=== PATIENT | male | born 1940 | race Caucasian/White ===

== ENCOUNTER 2018-10-11 11:34 | Observation (INO) | payer MEDICARE, BC ==
--- NOTE | 2018-10-11 11:56 | ED ---
Neurological HPI - HPI Summary HPI Summary: This patient is a 78 year old M presenting [facility] accompanied by his with concern for possible CVA. For the last 3 days the patient has been experience waxing and waning dizziness that he describes as having 2-3 drinks. Along with this he had silver crystals in his peripheral vision when blinking 2 nights ago that has resolved, he also experienced altered vision perception on the left that he describes as my left arm being four foot long and when I go to grab something I am farther that I expect. He contacted his PCP this morning who suggested he come here. Yesterday the patent states he experienced the dizziness early along with chills and states he slept most of the day. Patient denies TIWARI and kidney history. - History of Current Complaint Chief Complaint: EDNeurologicalDeficit Stated Complaint: STOKE LIKE SYMPOTOMS Time Seen by Provider: 10/11/18 11:41 Hx Obtained From: Patient Onset/Duration: Started days ago - 3, Still Present Timing: Constant Onset Severity: Moderate Current Severity: Moderate Pain Intensity: 0 Pain Scale Used: 0-10 Numeric Character: Other: - intoxicated Syncope Context: Loss of Consciousness: No Associated Signs and Symptoms: Positive: Dizziness - Allergy/Home Medications Allergies/Adverse Reactions: Allergies Allergy/AdvReac Type Severity Reaction Status Date / Time No Known Allergies Allergy Verified 10/11/18 11:59 Home Medications: Home Medications Losartan TAB* [Cozaar TAB*] 50 mg PO DAILY 10/11/18 [History Confirmed 10/11/18] Metoprolol Tartrate TAB* [Lopressor TAB*] 25 mg PO BID 10/11/18 [History Confirmed 10/11/18] Rosuvastatin (NF) [Crestor (NF)] 10 mg PO DAILY 10/11/18 [History Confirmed ] PMH/Surg Hx/FS Hx/Imm Hx Cardiovascular History: Reports: Hx Angina, Hx Angioplasty - x2 stents jun 2013 , Hx Auto Implanted Cardiovert Defib - 09/22/13, Hx Coronary Artery Disease - 2 STENTS PLACED IN [place], Hx Hypercholesterolemia, Hx Hypertension, Hx Myocardial Infarction - W 2 STENTS, Hx Pacemaker/ICD, Other Cardiovascular Problems/Disorders Respiratory History: Reports: Hx Pneumonia - recent diagnosis GI History: Denies: Other GI Disorders History: Reports: Hx Kidney Stones Denies: Other Problems/Disorders Musculoskeletal History: Reports: Hx Arthritis - SOME JOINT PAIN, Hx Tendonitis - left shoulder Sensory History: Reports: Hx Contacts or Glasses Denies: Hx Hearing Aid Opthamlomology History: Reports: Hx Contacts or Glasses - Cancer History Cancer Type, Location and Year: Pre-cancerous skin lesions removed - Surgical History Surgery Procedure, Year, and Place: left parotidectomy. 06/2013- [facility]. OFFICE VISITS FOR REMOVAL OF MOLES Hx Anesthesia Reactions: Yes - N/V AFTER THE PAROTIDECTOMY Infectious Disease History: No Infectious Disease History: Denies: Traveled Outside the [place] in Last 30 Days - Family History Known Family History: Positive: Cardiac Disease - father [place] - Social History Alcohol Use: Daily Alcohol Amount: 8 beers/week Hx Substance Use: No Substance Use Type: Reports: None Hx Tobacco Use: No Smoking Status (MU): Never Smoked Tobacco Review of Systems Positive: Chills, Fatigue Positive: Other - see HPI Neurological: Other - dizziness Negative: Headache All Other Systems Reviewed And Are Negative: Yes Physical Exam - Summary Physical Exam Summary: Appearance: The patient is well-nourished in no acute distress and in no acute pain. Skin: The skin is warm and dry and skin color reflects adequate perfusion. HEENT: The head is normocephalic and atraumatic. The pupils are equal and reactive. The conjunctivae are clear and without drainage. Nares are patent and without drainage. Mouth reveals moist mucous membranes and the throat is without erythema and exudate. The external ears are intact. The ear canals are patent and without drainage. The tympanic membranes are intact. Neck: The neck is supple with full range of motion and non-tender. There is a carotid bruit ion the right. There is no neck vein distension. Respiratory: Chest is non-tender. Lungs are clear to auscultation and breath sounds are symmetrical and equal. Cardiovascular: Heart is irregularly irregular with a controlled rhythm. There is no murmur or rub auscultated. There is no peripheral edema and pulses are symmetrical and equal. Abdomen: The abdomen is soft and non-tender. There are normal bowel sounds heard in all four quadrants and there is no organomegaly palpated. Musculoskeletal: There is no back tenderness noted. Extremities are non-tender with full range of motion. There is good capillary refill. There is no peripheral edema or calf tenderness elicited. Neurological: Patient is alert and oriented to person, place and time. The patient has symmetrical motor strength in all four extremities. Cranial nerves are grossly intact. Deep tendon reflexes are symmetrical and equal in all four extremities. Normal gait Psychiatric: The patient has an appropriate affect and does not exhibit any anxiety or depression. Triage Information Reviewed: Yes Vital Signs On Initial Exam: Initial Vitals Temp Pulse Resp BP Pulse Ox 97.2 F 68 16 167/82 97 10/11/18 11:35 10/11/18 11:35 10/11/18 11:35 10/11/18 11:35 10/11/18 11:35 Vital Signs Reviewed: Yes - [place] Coma Scale Best Eye Response: 4 - Spontaneous Best Motor Response: 6 - Obeys Commands Best Verbal Response: 5 - Oriented Coma Scale Total: 15 Diagnostics - Vital Signs Vital Signs Temp Pulse Resp BP Pulse Ox 10/11/18 11:35 97.2 F 68 16 167/82 97 - Laboratory Result Diagrams: 10/11/18 12:07 10/11/18 12:07 Lab Statement: Any lab studies that have been ordered have been reviewed, and results considered in the medical decision making process. - CT CTA Head CT Interpretation Completed By: Radiologist Summary of CT Findings: 1. NOTED ACUTE INTRACRANIAL PATHOLOGY. 2. NO INTERNAL CAROTID ARTERY STENOSIS BY NASCET CRITERIA. 3. NO ANEURYSM, VASCULAR MALFORMATION, OCCLUSION, OR STENOSIS OF THE VISUALIZED. INTRACRANIAL CIRCULATION. .. 4. .0.8 CM LEFT THYROID NODULE. IN THE ABSENCE OF A HISTORY OF MALIGNANCY, THE BERMUDIAN. COLLEGE OF RADIOLOGY INCIDENTAL THYROID FINDINGS COMMITTEE RECOMMENDS NO FURTHER IMAGING. FOLLOW-UP. ED physician has reviewed this radiology report. - EKG 1157 Cardiac Rate: NL EKG Rhythm: Sinus Rhythm - at 51 BPM Summary of EKG Findings: Premature atrial complexes NIH Scale - NIH Scale Level of Consciousness: Alert/Keenly Responsive Ask Patient the Month and His/Her Age: Both Correct Ask Pt to Open/Close Eyes and Coremaker Apprentice/Release Non-Paretic Hand: Both Correctly Best Gaze (Only Horizontal Eye Movement): Normal Visual Field Testing: No Visual Loss Facial Paresis-Pt to Smile & Close Eyes or Grimace Symmetry: Normal/Symmetrical Motor Function - Right Arm: No Drift-Holds 10 Seconds Motor Function - Left Arm: No Drift-Holds 10 Seconds Motor Function - Right Leg: No Drift-Holds 10 Seconds Motor Function - Left Leg: No Drift-Holds 10 Seconds Limb Ataxia-Must be out of Proportion to Weakness Present: Absent Sensory (Use Pinprick to Test Arms/Legs/Trunk/Face): Normal Best Language (Describe Picture, Name Items): No Aphasia Dysarthria (Read Several Words): Normal Extinction and Inattention: No Abnormality Total Score: 0 Course/Dx - Course Course Of Treatment: Mr. Reyes presented with a several day history of intermittent concerns including a gait disturbance, and visual problems on the left. On my exam his NIH stroke scale was 0 however I thought I heard a bruit on the right carotid. This may have been a transmitted murmur but I could not hear a murmur on his cardiac exam. Labs and CT of the head and neck revealed no acute pathology and I consulted for neurology who came to the department and evaluated him. He recommended admission to the hospitalist service and they were contacted and are admitting him now. - Diagnoses Provider Diagnoses: CVA (cerebral vascular accident) - Physician Notifications Discussed Care Of Patient With: Gamaliel Ramires Time Discussed With Above Provider: 13:47 Instructed by Provider To: Other - He has agreed to see the patient in the ED. 1441 He has recommends admitting the patient for what is most likely a CVA. Discharge - Sign-Out/Discharge Documenting (check all that apply): Patient Departure - admitted - Discharge Plan Condition: Fair Disposition: ADMITTED TO [facility] Referrals: Cassie Melendrez MD [Primary Care Provider] - - Billing Disposition and Condition Condition: FAIR Disposition: Admitted to [facility] - Attestation Statements Document Initiated by Smith: Yes Documenting Scribe: Kane Guerrier Provider For Whom Smith is Documenting (Include Credential): Asad Scanlon MD Scribe Attestation: IKane , scribed for Asad Scanlon MD on 10/11/18 at 1534. Scribe Documentation Reviewed: Yes Provider Attestation: The documentation as recorded by the Kane martinez accurately reflects the service I personally performed and the decisions made by me, Asad Scanlon MD Consult Consult: 0191: I discussed patient care with Dr. Avelar and she has accepted the patient for admission.
[2018-10-11 12:13] LABS: ABS Basophils 0.1 10^3/ul (0-0.2); ABS Eosinophils 0.1 10^3/ul (0-0.6); ABS Lymphocytes 1.8 10^3/ul (1.0-4.8); ABS Monocytes 0.5 10^3/ul (0-0.8); ABS Neutrophils 4.2 10^3/ul (1.5-7.7); ABS Nucleated RBC 0 10^3/ul; Eosinophil % 1.8 % (0-6); Hematocrit 45 % (42-52); Hemoglobin 15.3 g/dl (14.0-18.0); Lymphocyte % 26.4 % (25-47); Mean Corpuscular HGB Conc 34 g/dl (31-36); Mean Corpuscular Hemoglobin 32 pg (27-31); Mean Corpuscular Volume 93 fL (80-94); Mean Platelet Volume 7.6 fL (7.4-10.4); Nucleated Red Blood Cells % 0.1; Platelet Count 164 10^3/ul (150-450); Red Blood Count 4.82 10^6/ul (4.00-5.40); Red Cell Distribution Width 14 % (10.5-15); White Blood Count 6.7 10^3/ul (3.5-10.8)
[2018-10-11 12:27] LABS: INR 0.94 (0.77-1.02)
[2018-10-11] MEDS ORDERED: Iohexol 350* (CONTRAST) 500 ML MDV IV ONE (12:50)
[2018-10-11 14:13] LABS: Urine Appearance Clear; Urine Blood Negative (Negative); Urine Color Colorless; Urine Ketones Negative (Negative); Urine Protein Negative (Negative); Urine Specific Gravity 1.024 (1.010-1.030); Urine Urobilinogen Negative (Negative)
--- NOTE | 2018-10-11 15:09 | CONSULT ---
Consult Consult: Please see dictated consult note for more detail. 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 Most of these symptoms were transient. He is currently asymptomatic. On examination, he has mild reduced sensation to temperature on the left face and arm. NIHSS 1. He is not a candidate for IV tPA or mechanical thrombectomy as he is outside the therapeutic window. Other differential diagnosis such as focal sensory seizure is highly unlikely. A/P: I suspect the patient had a mild right MCA vascular territory infarct involving the right parietal lobe vs TIA to the left MCA vascular distribution. There is no stroke or large vessel occlusion on CT/CTA head and neck. Repeating another CT head will not be useful since the symptoms occurred > 24 hours ago and if it was a large stroke, it should be seen on the current study. 1. High suspicion for right parietal MCA vascular territory embolic stroke - I do recommend obtaining records from the patient's extension service specialist in charge (Dr. Serrano). We need to make sure the patient has no history of atrial arrhythmia such as atrial fibrillation. - Please order a TTE with bubble study - Admit for observation to assess for recurrent stroke or TIA - Start Plavix 75 mg daily + aspirin 81 mg daily for 30 days. Discontinue aspirin 81 mg after 30 days. If he does have evidence of atrial fibrillation or atrial thrombus, then discontinue ALL anti-platelet agents and start anticoagulation therapy. Defer anti-coagulation therapy recommendation to cardiology. - Order lipid panel and B12 level - Neuro checks every 4 hours - BP within normal range since he is outside the 24 hours window - DVT prophylaxis with heparin 5,000 units subcutaneously every 8 hours - No need for PT/OT/MOTION PICTURE SCENE BUILDER services since the patient is nearly asymptomatic - Please do a bedside swallow evaluation. - He should see an bone char kiln operator as an outpatient to exclude any intraocular abnormalities. I will continue to follow. Discussed care with Dr. Scanlon. Dr. Scanlon agreed to contact the hospitalist provider for admission. I also discussed the care with the patient and Mrs. Reyes at bedside. I informed them my concern for a possible stroke. I informed him that he is at a high risk of developing recurrent symptoms or evolution of symptoms the first 7 days after a stroke.
[2018-10-11] MEDS ORDERED: Acetaminophen TAB* 325 MG PO PRN (15:36)
[2018-10-11] MEDS ORDERED: Ondansetron INJ* 2 MG/ML VIAL IV PRN (15:36)
[2018-10-11] MEDS: Clopidogrel TAB* 75 MG PO SCH (17:40)
--- NOTE | 2018-10-11 20:41 | HP ---
CC: Dr. Melendrez; Dr. Ramires; Dr. Serrano * HISTORY AND PHYSICAL: DATE OF ADMISSION: 10/11/18 PRIMARY CARE PROVIDER: Dr. Melendrez. CONSULTING NEUROLOGIST: Dr. Ramires. ATTENDING PROVIDER: Dr. Avelar * (DICTATED BY BILL ROY NP) CHIEF COMPLAINT: 1. Dizziness. 2. Visual changes. HISTORY OF PRESENT ILLNESS: Mr. Reyes is a 78-year-old male patient. He has a history of CAD, history of LA, hyperlipidemia, cardiomyopathy, last EF 45% to 50%, arthritis. He has a history of nephrolithiasis, hypertension and has a history of PACs. He presents today stating that on Thursday he noticed that he was having trouble with depth perception, particularly in his left arm and he was seeing white flashes out of his left eye. He was having difficulty with depth perception of his left side. He was noticing that he thought when he was looking out of his left lower quadrant that he could see his left hand, but in actuality it was not there. He denied any facial drooping. No weakness to one side. He did admit to feeling dizzy and lightheaded and having a headache yesterday. He denied having any fevers. He did admit to feeling warm, but no documented fever. He states the dizziness is gone. When he woke up this morning, he said he was seeing crystals and floaters out of his left lower quadrant of his left eye. He was concerned because his symptoms were not getting any better. He thought he should be evaluated. He came in to the ER. He denied any recent change in medications. He denied again having any focal weaknesses or any facial drooping or trouble finding words. He was evaluated in the ED. There was concern for possible CVA and we were asked to evaluate for admission. PAST MEDICAL HISTORY: Significant for: 1. CAD. He did have a stress test this year, which showed no reversible ischemia. 2. He had an LA. 3. Hyperlipidemia. 4. Cardiomyopathy, last EF was 45% to 50% on an echo done outpatient this year. 5. Arthritis. 6. Nephrolithiasis. 7. Hypertension. 8. He has a history of PACs. PAST SURGICAL HISTORY: He has had a cardiac catheterization. He had an ICD placement and he has had a parotidectomy. MEDICATIONS: His home meds include: 1. Metoprolol tartrate 25 mg p.o. b.i.d. 2. Crestor 10 mg daily. 3. Aspirin 81 mg daily. 4. Cozaar 50 mg daily. ALLERGIES TO MEDICATIONS: Include no known drug allergies. FAMILY HISTORY: He states his mother in her 90s of old age. Father had an LA at the age of 84. His brother also had an LA. SOCIAL HISTORY: He does not smoke. He does drink 2 to 3 mixed drinks a day. The surrogate decision maker is his . REVIEW OF SYSTEMS: There is no documented fever. He denied having any significant weight change. There is no double vision. He denies having any ear discharge. There is no rhinorrhea. There was no sore throat. No thyroid enlargement. He denied having any chest pain. There is no orthopnea. There is no nocturnal dyspnea. There was no abdominal pain. There was no nausea, no vomiting. No dysuria. There was no frequency. There was no seizure. There was no loss of consciousness. No pruritus and no skin ulcerations. Review of 14 systems completed, all others negative. PHYSICAL EXAMINATION GENERAL: At this time, Mr. Reyes is a 78-year-old male patient. He is sitting in the ED stretcher. He does not appear to be in any acute distress. He appears to be well nourished and well developed. VITAL SIGNS: Blood pressure 164/109, pulse 62, respirations 18, O2 sat 98%, temperature 97.2. HEENT: Head: Atraumatic and normocephalic. Eyes: EOMs are intact. Sclerae anicteric and not pale. Throat: Oral mucosa appears to be moist. No oropharyngeal erythema. NECK: Supple. LUNGS: Clear to auscultation. No wheezes, rales, or rhonchi. HEART: Sounds S1, S2. He had a regular rate and rhythm with occasional skipped beat. No murmurs, rubs, or gallops. ABDOMEN: Soft, flat, nontender. Bowel sounds were present. EXTREMITIES: Pulses were 2+ throughout. He is moving all 4 extremities with 5/ 5 strength. He had no peripheral edema. NEUROLOGICAL: He is awake. He is alert. He is oriented x3. His tongue is midline. His state superintendent of schools were equal. Vxfkiu-ta-migl intact bilaterally. Heel-to- almazan intact bilaterally. He had no pronator drift. No leg drift. Peripheral vision was intact. Cranial nerves II through XII were intact. He had no gross focal deficits on my exam. SKIN: Intact. DIAGNOSTIC STUDIES/LAB DATA: WBC of 6.7, RBC 4.82, hemoglobin 15.3, hematocrit 45, platelet count 154,000. INR 0.94. Sodium 137, potassium of 4.2 , chloride 107, bicarb 25, BUN 15, creatinine 1.07, glucose 115. Lactate 1.1. Calcium 9.3. Bili 2.0, AST 27, ALT 30, alk phos 57. Troponin 0.01. TSH of 4.53. Albumin 4.1. Urine was obtained; it was negative. He did have a head CTA obtained today, impression: No acute intracranial pathology, no internal carotid artery stenosis by NASCET criteria, no aneurysms , vascular malformation, occlusion, or stenosis of the visualized intracranial circulation. He has a 0.8 cm left thyroid nodule in the absence of a history of malignancy. No further imaging followup needed based on incidental finding. He did have an EKG obtained today, which when I reviewed it, he has sinus bradycardia with rate of 51. He does have PAC. He had no ST elevation. He did have some depression in leads 2, 3, and aVF. When he looked to his previous EKGs and this was from 2 years ago, that depression was present then and again he had PACs previously. Old medical records were reviewed. ASSESSMENT AND PLAN: Mr. Reyes is a 78-year-old male patient coming into the ED today with complaints of again visual disturbances. In addition to this, difficulty with proprioception in the left upper extremity. He will be admitted under observation status for: 1. Question cerebrovascular accident. Again, at this point, he is nonfocal on my exam. Dr. Ramires did notice that he does have some decreased temperature sensation in the left side compared to the right side, particularly the left face and left arm. There is concern for possible stroke. Plan would be to get an echo with bubble studies. I am going to interrogate the pacemaker to make sure he has no definite history of atrial fibrillation. The patient did state to me that he had a history of atypical atrial fibrillation and I am going to touch base with his printing manager to confirm this because if he does have atrial fibrillation, that would be an indication for a blood thinner. At this point though, there is no documented atrial fibrillation, so I am going to continue with Plavix and aspirin, statin therapy. We will check lipid panel, A1c, frequent neuro checks. Unfortunately, he cannot have an MRI because of the ICD, so we will continue to follow. 2. Coronary artery disease. Continue statin, aspirin, and beta-deepak therapy. 3. Hyperlipidemia. Continue statin therapy. 4. Cardiomyopathy. I have held his Cozaar for 24 hours to allow for some permissive hypertension in the setting of possible stroke. Most likely, I could restart this tomorrow. He does not appear to be in failure. We will follow. Last EF was 45% to 50%. 5. History of arthritis. P.r.n. Tylenol is available. 6. Kidney stones. Follow up with PCP. 7. History of hypertension. Allow for permissive hypertension. I will treat blood pressures greater than 200 or diastolics greater than 100. 8. DVT prophylaxis. He will be placed on heparin subcu. 9. Code status. He is a full code. 10. Fluids, electrolytes, and nutrition. He can have a heart healthy diet. TIME SPENT: On the admission was 60 minutes, greater than half the time spent face- to-face with the patient obtaining my history and physical; other half time spent going over the plan of care with the patient and implementing plan of care. I did discuss the plan of care with my attending, Dr. Avelar. BILL ROY, EVAN [id number]/[facility] #: [id number] JOVI
[2018-10-11] MEDS: Heparin VIAL(*) 5000 UNITS/ML VIAL (FIVE THOUSAND) SUBCUT SCH (21:10)
[2018-10-11] MEDS: Metoprolol Tartrate TAB* 25 MG PO SCH (21:10)
--- NOTE | 2018-10-11 21:16 | CONS ---
NEUROLOGY CONSULTATION NOTE: DATE OF CONSULT: 10/11/18 CONSULTING PROVIDER: Asad Scanlon MD REASON FOR CONSULT: Transient visual disturbance, dizziness, headache, and left - sided numbness. CHIEF COMPLAINT: "I've no symptoms now, but I did have a minor headache." HISTORY OF PRESENT ILLNESS: Mr. 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 The patient stated that he had a republican on Thursday. At approximately 9 p.m., the patient went out to throw the trash. He noticed sudden sparkle-like shiny object in the left peripheral vision. When he looks towards the left, he does not see anything. This occurred 2 more times. Lastly, it occurred suddenly when he noticed it was actually his left hand. He was unsure if he had any jewelry in the left hand. When he lifted his left arm he noticed and felt that it was detached away from his body and it was far away approximately 2 to 3 feet away. He did not know if actually it was his hand or not. He went to sleep that night and spent the night Thursday sleeping. He did consume 2-3 alcoholic beverages that Thursday, but this occurred 2 hours after his last drink. He does take aspirin 81 mg daily. On Thursday, he felt mild chills with associated mild headache. He had bifrontal headache, constant, 4/10 in severity, dull sensation with no radiating pain. He had no photophobia. He has no nausea. He rarely has headaches. He felt lightheaded throughout the day. He denied vertigo. He denied any current focal weakness or paresthesia. All these symptoms resolved this morning; however, after contacting his primary care doctor, who contacted Dr. Ananda James and who recommended further evaluation in the emergency room. PAST MEDICAL HISTORY: Cataracts; myocardial infarction, status post 2 stent placement; ICD implantation; excision of premelanoma skin lesions. MEDICATIONS: 1. Aspirin 81 mg daily. 2. Losartan 50 mg p.o. daily. 3. Rosuvastatin 10 mg p.o. daily. 4. Metoprolol 25 mg p.o. twice daily. ALLERGIES: No known drug allergies. FAMILY HISTORY: No family history of stroke or seizures. His father from a major heart attack. 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 He denied any tobacco use. He drinks a glass of beer or shots of bourbon daily/or every other day. REVIEW OF SYSTEMS: A 14-point review of systems was obtained and otherwise negative except for what was mentioned in the HPI. PHYSICAL EXAM: Vitals: Temperature 97.2, heart rate of 55, respiratory rate of 18, oxygen saturation of 95%, blood pressure 149/83. General: Well- nourished, well-developed man, in no acute distress. Head: Normocephalic, atraumatic. Eyes: Conjunctivae/corneas are clear. Neck is supple and symmetrical with no carotid bruits. Lungs are clear to auscultation bilaterally. Cardiovascular: He has got irregular rhythm with normal rate. Extremities: Normal range of motion with no cyanosis. Skin: No skin lesions or lacerations. Psych: Affect is broad and normal mood. Easy to establish rapport. Neurological Examination: Mental Status: Awake, alert, and oriented to person, place, time, and general circumstances. He has no dysphasia or dysarthria. Normal confrontation testing bilaterally. Pupils are mid range and reactive to light. Extraocular muscles are intact. No ptosis. He does have slight widening of the palpebral fissure on the right side. No facial droop. He is able to hear throughout the history process. Symmetrical palatal elevation. Normal strength against resistance. Sensation to light touch was intact on the left side of the face; however, temperature sensation was reduced on the left side of the face. Motor: Right/left, no abnormal movements. No pronator drift. 5/5 strength in the upper and lower extremities bilaterally. Reflexes: Right/left, brachioradialis 2/2, biceps 2/2, triceps 2/2, patella 2/2 , ankle 1/1, plantar flexor/flexor. Sensation is intact to light touch throughout except for decreased sensation to temperature on the left arm in a nondermatomal fashion. Normal vibration and proprioception at the great toes for his age. Coordination: Normal [id number] and rapid alternating movements. Gait: Narrow based, normal stance and gait. No ataxia. DIAGNOSTIC STUDIES/LAB DATA: Head CT and CTA head and neck were personally reviewed. There was no evidence of intracranial pathology. There is no carotid artery stenosis. He does have a left thyroid nodule measuring 0.8 cm. The patient has no history of cancer. Laboratory data: WBC of 6.7, hemoglobin of 15.3, hematocrit of 45, platelet count of 164. INR of 0.94. Sodium of 137, potassium of 4.2, chloride 107, carbon dioxide 25, anion gap is 5, BUN is 15, creatinine of 1.07. Urinalysis is negative for pyuria. 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 Most of these symptoms were transient and have resolved. He is currently asymptomatic. NIH Stroke Scale on examination though revealed mild reduced sensation to temperature on the left face and arm, thus an NIH Stroke Scale of 1. He is not a candidate of IV tPA or mechanical thrombectomy as he is outside the therapeutic window. Other differential diagnosis includes a focal sensory seizure is highly unlikely. I suspect the patient had a mild right MCA vascular territory infarct involving the right parietal lobe versus transient ischemic attack to the right MCA vascular territory. There is no stroke or large vessel occlusion on intracranial testing; however, this can be missed on a CT head. The patient cannot have an MRI due to pacemaker/ICD device. His last echo was 1 year ago. Repeating a CT head will not be useful since the symptoms occurred more than 24 hours ago and if it was large enough we would have seen on the study already. RECOMMENDATIONS: I do recommend obtaining records from the patient's early learning teacher, Dr. Serrano. We will need to make sure the patient has no history of atrial arrhythmia such as atrial fibrillation as this will change the medical management. Please order a transthoracic echo with bubble study. Admit for observation to assess for recurrent stroke/TIA. Start Plavix 75 mg daily. Continue aspirin 81 mg daily for 30 days. Discontinue the aspirin 81 mg after 30 days. If he does have evidence of atrial fibrillation or atrial thrombus, then discontinue all antiplatelet agents and start anticoagulation therapy. Defer anticoagulation therapy recommendation to Cardiology. Order a lipid panel and vitamin B12 level. Neuro checks every 4 hours. Blood pressure should be within normal range since we are outside the 24 hours window of the symptoms onset. DVT prophylaxis with heparin 5000 units subcutaneous every 8 hours. No need for PT/OT/DISPATCHER CHIEF OIL services since the patient is nearly asymptomatic. Please do a bedside swallow evaluation though. He should see an powder press operator as an outpatient to exclude any other intraocular abnormalities. Thyroid nodule seen on CTA. Defer further management and recommendation to the primary team. His TSH was normal. History of dyslipidemia. Continue statin therapy. TIME SPENT: I spent a total of 70 minutes of which greater than 50% was spent obtaining history, examining the patient, and discussing the treatment options as mentioned above. I also discussed the case with Dr. Scanlon, who agreed to contact the hospitalist provider for admission. I will continue to follow. [id number]/CPS #: [id number] JOVI
[2018-10-12 05:36] LABS: ABS Basophils 0 10^3/ul (0-0.2); ABS Eosinophils 0.2 10^3/ul (0-0.6); ABS Lymphocytes 1.7 10^3/ul (1.0-4.8); ABS Monocytes 0.6 10^3/ul (0-0.8); ABS Neutrophils 4.9 10^3/ul (1.5-7.7); ABS Nucleated RBC 0 10^3/ul; Eosinophil % 2.2 %; Hematocrit 45 % (42-52); Hemoglobin 15.4 g/dl (14.0-18.0); Lymphocyte % 23.2 %; Mean Corpuscular HGB Conc 35 g/dl (31-36); Mean Corpuscular Hemoglobin 32 pg (27-31); Mean Corpuscular Volume 93 fL (80-94); Mean Platelet Volume 8.1 fL (7.4-10.4); Nucleated Red Blood Cells % 0.1; Platelet Count 169 10^3/ul (150-450); Red Blood Count 4.78 10^6/ul (4.00-5.40); Red Cell Distribution Width 13 % (10.5-15); White Blood Count 7.4 10^3/ul (3.5-10.8)
[2018-10-12 05:44] LABS: INR 0.98 (0.77-1.02)
[2018-10-12] MEDS: Heparin VIAL(*) 5000 UNITS/ML VIAL (FIVE THOUSAND) SUBCUT SCH (05:47)
[2018-10-12 05:51] LABS: EGFR Non-African American 66.3 (>60)
[2018-10-12] MEDS ORDERED: Perflutren Lipid Microsphere* 3 ML VIAL ONE (07:58)
[2018-10-12] MEDS ORDERED: Folic Acid TAB* 1 MG PO SCH (09:00)
[2018-10-12] MEDS ORDERED: Multivitamins/Minerals TAB PO SCH (09:00)
[2018-10-12] MEDS ORDERED: Thiamine TAB* 100 MG TAB PO SCH (09:00)
[2018-10-12] MEDS ORDERED: Aspirin 81 mg CHEW TAB* 81 MG TAB.CHEW PO SCH (09:00)
[2018-10-12] MEDS ORDERED: Aspirin EC TAB* 81 MG TAB.EC PO SCH (09:00)
[2018-10-12] MEDS: Atorvastatin* 20 MG TAB PO SCH ×2 (09:34→09:40)
[2018-10-12] MEDS: Metoprolol Tartrate TAB* 25 MG PO SCH (09:36)
[2018-10-12] MEDS: Clopidogrel TAB* 75 MG PO SCH (09:36)
[2018-10-12 11:41] VITALS: BP 115/60
--- NOTE | 2018-10-12 11:43 | PN ---
Subjective Date of Service: 10/12/18 Length of Stay: 1 Days Neurology is following Mr. Reyes for the evaluation and management of mild stroke. Interval History: He has not experienced any visual disturbance or proprioceptive loss of the left arm. He has been walking around unassisted without any difficulty. He did endorse an increase alcohol intake the last few years since he is retired and he plans on cutting down. He denied any headache or lightheadedness. He felt some light headedness this morning when he woke up but that only lasted a few seconds. He had the TTE done today. He was seen by Dr. Dale this morning. The ICD was interrogated and he has no evidence of atrial fibrillation. He has PAC. Pending the TTE results. Review of Systems: Denied CP, SOB, or palpitations. Objective Active Medications: Acetaminophen (Tylenol Tab*) 650 mg PO Q4H PRN PRN Reason: FEVER/PAIN Aspirin (Aspirin Ec Tab*) 81 mg PO DAILY [facility] Last Admin: 10/12/18 09:36 Dose: 81 mg Atorvastatin Calcium (Lipitor*) 20 mg PO DAILY [facility]; Protocol Last Admin: 10/12/18 09:40 Dose: Not Given Clopidogrel Bisulfate (Plavix Tab*) 75 mg PO DAILY [facility] Last Admin: 10/12/18 09:36 Dose: 75 mg Folic Acid (Folvite Tab*) 1 mg PO DAILY [facility] Last Admin: 10/12/18 09:35 Dose: 1 mg Heparin Sodium (Porcine) (Heparin Vial(*)) 5,000 units SUBCUT Q8HR [facility] Last Admin: 10/12/18 05:47 Dose: 5,000 units Metoprolol Tartrate (Lopressor Tab*) 25 mg PO BID [facility] Last Admin: 10/12/18 09:36 Dose: 25 mg Multivitamins/Minerals (Theragran/Minerals Tab*) 1 tab PO DAILY [facility] Last Admin: 10/12/18 09:35 Dose: 1 tab Ondansetron HCl (Zofran Inj*) 4 mg IV Q6H PRN PRN Reason: NAUSEA Last Admin: 10/11/18 21:11 Dose: 4 mg Thiamine HCl (Vitamin B-1 Tab*) 100 mg PO DAILY [facility] Last Admin: 10/12/18 09:35 Dose: 100 mg Vital Signs 10/11/18 10/11/18 10/11/18 11:57 11:58 12:00 Temperature Pulse Rate 62 64 65 Respiratory 16 14 12 Rate Blood Pressure 143/90 (mmHg) O2 Sat by Pulse 95 94 94 Oximetry 10/11/18 10/11/18 10/11/18 12:28 12:58 13:00 Temperature Pulse Rate 58 61 61 Respiratory 17 16 15 Rate Blood Pressure 129/74 156/91 (mmHg) O2 Sat by Pulse 93 95 96 Oximetry 10/11/18 10/11/18 10/11/18 13:28 14:00 15:07 Temperature Pulse Rate 56 57 62 Respiratory 19 18 19 Rate Blood Pressure 149/83 164/109 (mmHg) O2 Sat by Pulse 95 95 98 Oximetry 10/11/18 10/11/18 10/11/18 15:28 15:58 16:00 Temperature Pulse Rate 59 61 61 Respiratory 15 20 17 Rate Blood Pressure 159/78 136/85 (mmHg) O2 Sat by Pulse 95 96 95 Oximetry 10/11/18 10/11/18 10/11/18 16:16 16:17 19:30 Temperature 98.3 F 98 F 98.9 F Pulse Rate 61 61 73 Respiratory 16 20 14 Rate Blood Pressure 149/72 136/85 151/88 (mmHg) O2 Sat by Pulse 97 96 97 Oximetry 10/11/18 10/12/18 10/12/18 23:35 01:35 03:40 Temperature 98.4 F 97.5 F Pulse Rate 58 65 Respiratory 20 16 Rate Blood Pressure 136/80 143/68 (mmHg) O2 Sat by Pulse 95 95 95 Oximetry 10/12/18 10/12/18 07:15 07:25 Temperature 98.0 F Pulse Rate 72 35 Respiratory 16 Rate Blood Pressure 130/68 (mmHg) O2 Sat by Pulse 93 Oximetry Intake and Output Last 24 Hours 10/10/18 10/11/18 10/12/18 10/13/18 06:59 06:59 06:59 06:59 Intake Total 810 360 Output Total 0 Balance 810 360 Weight 194 lb 4.8 oz Intake: Oral 810 360 Output: Urine 0 Other: Estimated Void Medium # Bowel Movements 0 # Voids 1 Oxygen Devices in Use Now: None Neurology Exam: General: Well appearing healthy man in no acute distress. HEENT: Normocephelic/atraumatic, sclera anicteric, mucous membranes moist Neck: Supple Chest: Clear to auscultation bilaterally Cardiovascular: Regular rate and rhythm without murmurs, rubs, gallops Extremities: No clubbing, cyanosis, or edema Neurological Findings: Awake, alert to self, place, time, and general circumstance. No aphasia or dysarthria. Speech: fluent without dysarthric, repetition intact Cranial Nerve: PEERL, EOM intact, VFF, no nystagmus, face symmetric bilaterally , facial sensation intact, hearing intact to finger rub bilaterally, palate elevates symmetrically, tongue midline, SCM and Trapezius s/s. Motor: s/s throughout, proximal and distal extremities x4 tone/bulk normal Sensation: intact to LT/PP bilaterally upper and lower extremities. Decrease sensation to temperature on the left face and arm. Deep Tendon Reflex: 2+ symmetric in the upper/lower extremities, Babinski - down going Finger to nose, rapid alternating movements intact without tremor, no dysdiadochokinesia Gait: intact with good arm swing and stride Result Diagrams: 10/12/18 05:11 10/12/18 05:11 Additional Lab and Data: Laboratory Results - last 24 hr 10/11/18 10/11/18 10/11/18 12:03 12:07 12:07 WBC 6.7 RBC 4.82 Hgb 15.3 Hct 45 MCV 93 MCH 32 H MCHC 34 RDW 14 Plt Count 164 MPV 7.6 Neut % (Auto) 63.1 Lymph % (Auto) 26.4 [place] % (Auto) 7.6 H Eos % (Auto) 1.8 Baso % (Auto) 1.1 Absolute Neuts (auto) 4.2 Absolute Lymphs (auto) 1.8 Absolute Monos (auto) 0.5 Absolute Eos (auto) 0.1 Absolute Basos (auto) 0.1 Absolute Nucleated RBC 0 Nucleated RBC % 0.1 INR (Anticoag Therapy) 0.94 APTT 27.6 Sodium Potassium Chloride Carbon Dioxide Anion Gap BUN Creatinine Est GFR ( Amer) Est GFR (Non-Af Amer) BUN/Creatinine Ratio Glucose Hemoglobin A1c Lactic Acid Calcium Total Bilirubin AST ALT Alkaline Phosphatase Troponin I Total Protein Albumin Globulin Albumin/Globulin Ratio Triglycerides Cholesterol LDL Cholesterol HDL Cholesterol TSH Urine Color Urine Appearance Urine pH Ur Specific [place] Urine Protein Urine Ketones Urine Blood Urine Nitrate Urine Bilirubin Urine Urobilinogen Ur Leukocyte Esterase Urine Glucose 10/11/18 10/11/18 10/11/18 12:07 12:07 13:57 WBC RBC Hgb Hct MCV MCH MCHC RDW Plt Count MPV Neut % (Auto) Lymph % (Auto) [place] % (Auto) Eos % (Auto) Baso % (Auto) Absolute Neuts (auto) Absolute Lymphs (auto) Absolute Monos (auto) Absolute Eos (auto) Absolute Basos (auto) Absolute Nucleated RBC Nucleated RBC % INR (Anticoag Therapy) APTT Sodium 137 Potassium 4.2 Chloride 107 Carbon Dioxide 25 Anion Gap 5 BUN 15 Creatinine 1.07 Est GFR ( Amer) 81.1 Est GFR (Non-Af Amer) 67.0 BUN/Creatinine Ratio 14.0 Glucose 115 H Hemoglobin A1c Lactic Acid 1.1 Calcium 9.3 Total Bilirubin 2.00 H AST 27 ALT 30 Alkaline Phosphatase 57 Troponin I 0.01 Total Protein 7.3 Albumin 4.1 Globulin 3.2 Albumin/Globulin Ratio 1.3 Triglycerides Cholesterol LDL Cholesterol HDL Cholesterol TSH 4.52 Urine Color Colorless Urine Appearance Clear Urine pH 7.0 Ur Specific [place] 1.024 Urine Protein Negative Urine Ketones Negative Urine Blood Negative Urine Nitrate Negative Urine Bilirubin Negative Urine Urobilinogen Negative Ur Leukocyte Esterase Negative Urine Glucose Negative 10/12/18 10/12/18 10/12/18 05:11 05:11 05:11 WBC 7.4 RBC 4.78 Hgb 15.4 Hct 45 MCV 93 MCH 32 H MCHC 35 RDW 13 Plt Count 169 MPV 8.1 Neut % (Auto) 66.1 Lymph % (Auto) 23.2 [place] % (Auto) 7.8 Eos % (Auto) 2.2 Baso % (Auto) 0.7 Absolute Neuts (auto) 4.9 Absolute Lymphs (auto) 1.7 Absolute Monos (auto) 0.6 Absolute Eos (auto) 0.2 Absolute Basos (auto) 0 Absolute Nucleated RBC 0 Nucleated RBC % 0.1 INR (Anticoag Therapy) 0.98 APTT Sodium 138 Potassium 4.2 Chloride 106 Carbon Dioxide 25 Anion Gap 7 BUN 15 Creatinine 1.08 Est GFR ( Amer) 80.2 Est GFR (Non-Af Amer) 66.3 BUN/Creatinine Ratio 13.9 Glucose 113 H Hemoglobin A1c Lactic Acid Calcium 9.2 Total Bilirubin AST ALT Alkaline Phosphatase Troponin I Total Protein Albumin Globulin Albumin/Globulin Ratio Triglycerides 139 Cholesterol 138 LDL Cholesterol 63 HDL Cholesterol 47.0 TSH Urine Color Urine Appearance Urine pH Ur Specific [place] Urine Protein Urine Ketones Urine Blood Urine Nitrate Urine Bilirubin Urine Urobilinogen Ur Leukocyte Esterase Urine Glucose 10/12/18 05:11 WBC RBC Hgb Hct MCV MCH MCHC RDW Plt Count MPV Neut % (Auto) Lymph % (Auto) [place] % (Auto) Eos % (Auto) Baso % (Auto) Absolute Neuts (auto) Absolute Lymphs (auto) Absolute Monos (auto) Absolute Eos (auto) Absolute Basos (auto) Absolute Nucleated RBC Nucleated RBC % INR (Anticoag Therapy) APTT Sodium Potassium Chloride Carbon Dioxide Anion Gap BUN Creatinine Est GFR ( Amer) Est GFR (Non-Af Amer) BUN/Creatinine Ratio Glucose Hemoglobin A1c 5.7 H Lactic Acid Calcium Total Bilirubin AST ALT Alkaline Phosphatase Troponin I Total Protein Albumin Globulin Albumin/Globulin Ratio Triglycerides Cholesterol LDL Cholesterol HDL Cholesterol TSH Urine Color Urine Appearance Urine pH Ur Specific [place] Urine Protein Urine Ketones Urine Blood Urine Nitrate Urine Bilirubin Urine Urobilinogen Ur Leukocyte Esterase Urine Glucose Assessment/Plan 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 He continues to have reduced sensation to temperature on the left face and arm but intact at the left leg. He has no other focal neurological deficit. An MRI brain without contrast was not obtained due to patient's ICD device. A repeat CT head without contrast was not obtained since the transient symptoms occurred > [address] head (suspect to see any large stroke if present). Therefore, the patient's presentation is quite focal and is most likely related to a small right parietal vs tiny right thalamic stroke. He reports no deficits except for what we are finding on examination. 1. 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 He has no evidence of atrial fibrillation after interrogating the ICD device. There is no evidence of large vessel intra or extracranial occlusion on CTA. Pending TTE w/ Bubble study which was done this morning but we are waiting for the results. If negative for thrombus, and the quality of the echo is good, then there is no further neurological work-up required at this time. - He is tolerating DAPT. Continue DAPT until 11/10/2018. The patient was instructed to discontinue aspirin and continue Plavix 75 mg daily after that. - No adjustment is needed for his statin therapy since LDL < 70. - Appreciate Cardiology's evaluation. No need for anticoagulation therapy as he has no evidence of atrial fibrillation. - Stroke education and counseling completed. The patient agreed to reduce his alcohol intake and continue to exercise regularly. - Follow-up with Dr. James in 3-4 weeks. An appointment will be arranged. Time spent: 30 minutes which >50% spent on examining and discussing the treatment plan as mentioned above.
--- NOTE | 2018-10-12 12:15 | ECHO ---
Patient: SUNI MELO [facility] Rec#: [id number] : 1940 Date: 10/12/2018 Age: 78y Height: 178 cm / 70.1 in Weight: 91 kg / 200.6 lbs Sex: M BSA: 2.09 Room#: 432 Admit Date#: 10/11/2018 Type: Inpatient Referring: Darren Gupta NP Reading: Kentrell Serrano MD Assembler Product: Citlali Olivarez RDCS,RDMS CC: Cassie Melendrez MD Transthoracic Echocardiogram Indication: CVA BP: 143/68 HR: 65 Rhythm: NSR with PACs Findings History: CAD, TN, PCI CHF, ICD, HLD Technical Comments: The study is technically limited due to poor acoustic windows. Left Ventricle: The left ventricular chamber size is normal. Mild concentric left ventricular hypertrophy is observed. There is global hypokinesis of the left ventricle with minor regional variation. There is moderate to severely decreased left ventricular systolic function. The estimated ejection fraction is 30-35%. There is an E to A reversal in the mitral valve flow pattern suggestive of diastolic dysfunction. The mid anterior, and mid anterolateral wall segments are hypokinetic (score 2). The apical septal, apical anterior, and apical lateral wall segments are akinetic (score 3). Overall wallmotion score index is 2.60 Left Atrium: The left atrial chamber size is normal. Right Ventricle: The right ventricular cavity size is normal. The right ventricular global systolic function is low normal. Right Atrium: The right atrial cavity size is normal. The bubble study is negative. A patent foramen ovale is not demonstrated with color Doppler and agitated contrast. Aortic Valve: The aortic valve is trileaflet. The aortic valve leaflets are mildly thickened. There is aortic annular calcification. There is no evidence of aortic regurgitation. There is no evidence of aortic stenosis. Mitral Valve: The mitral valve leaflets appear normal. There is a trace of mitral regurgitation. There is no evidence of mitral stenosis. Tricuspid Valve: The tricuspid valve leaflets are normal. There is no evidence of tricuspid valve regurgitation. Unable to estimate the right ventricular systolic pressure. Pulmonic Valve: The pulmonic valve appears normal. There is a trace pulmonic regurgitation. Pericardium: There is no significant pericardial effusion. Aorta: The aortic root appears normal. There is no dilatation of the aortic arch. Pulmonary Artery: The main pulmonary artery is not well visualized. Venous: The inferior vena cava appears normal in size. There is less than 50% respiratory change in the inferior vena cava dimension. Contrast: Definity was used to optimize study. A total of 2.5 ml was used. Intravenous agitated saline contrast was used to assess intracardiac shunting. Images 75 and 76. Conclusions Mild concentric left ventricular hypertrophy is observed. There is global hypokinesis of the left ventricle with minor regional variation. There is moderate to severely decreased left ventricular systolic function. The estimated ejection fraction is 30-35%. The right ventricular global systolic function is low normal. A patent foramen ovale is not demonstrated with color Doppler and agitated contrast. There is no evidence of aortic stenosis. There is a trace of mitral regurgitation. There is no evidence of tricuspid valve regurgitation. Unable to estimate the right ventricular systolic pressure. There is no significant pericardial effusion. Measurements Name Value Normal Range RVIDd (AP) 2D 2.5 cm (0.9 - 2.6) RAd ISD 4CH 4.6 cm (3.4 - 4.9) IVSd (2D) 1.1 cm (0.6 - 1) LVPWd (2D) 1.2 cm (0.6 - 1) LVIDd (2D) 5.4 cm (3.6 - 5.4) LVIDs (2D) 4.7 cm - LV FS (2D) 12 % (25 - 45) Aortic Annulus 2 cm (1.4 - 2.6) Ao root diameter (2D) 3 cm (2.1 - 3.5) Ascending Ao 3.1 cm (2.1 - 3.4) Aortic arch 3 cm (1.8 - 3.4) LA dimension (AP) 2D 3.8 cm (2.3 - 3.8) LAd ISD 4CH 5.5 cm (2.9 - 5.3) LA ISD 4CH W 4.7 cm (2.5 - 4.5) Name Value Normal Range LA ESV BP (A/L) index 30 ml/m2 - Name Value Normal Range MV E-wave Vmax 0.5 m/sec - MV deceleration time 143 msec - MV A-wave Vmax 0.8 m/sec - MV E:A ratio 0.6 ratio - P. vein S-wave Vmax 0.6 m/sec - P. vein D-wave Vmax 0.4 m/sec - P. vein S:D Vmax ratio 1.4 ratio - P. vein A-wave duration 119 msec - LV septal e' Vmax 0.05 m/sec - LV lateral e' Vmax 0.06 m/sec - LV E:e' septal ratio 10 ratio - LV E:e' lateral ratio 8.5 ratio - Name Value Normal Range AV Vmax 1.2 m/sec - AV VTI 23 cm - AV peak gradient 6 mmHg - AV mean gradient 3 mmHg - LVOT Vmax 0.8 m/sec - LVOT VTI 18 cm - LVOT peak gradient 2.6 mmHg - LVOT mean gradient 1 mmHg - TITO Vmax 0.5 m/sec - Name Value Normal Range RAP 8 mmHg - IVC diameter 2.1 cm - Name Value Normal Range PV Vmax 0.6 m/sec - PV peak gradient 1 mmHg - Wallmotion BAS Not Seen BA Not Seen BAL Not Seen LOTTIE Not Seen BI Not Seen BIS Not Seen MAS Not Seen MA Hypokinetic MAL Hypokinetic MIL Not Seen TN Not Seen MIS Not Seen Akinetic AA Akinetic AL Akinetic AI Not Seen APEX Akinetic
--- NOTE | 2018-10-13 11:44 | DS ---
CC: Dr. Gamaliel Ramires; Dr. Kentrell Serrano; Dr. Melendrez * DISCHARGE SUMMARY: DATE OF ADMISSION: 10/11/18 DATE OF DISCHARGE: 10/12/18 PRIMARY CARE PROVIDER: Dr. Melendrez. ATTENDING PHYSICIAN: On this admission is Dr. Lorenza Avelar. She is also my attending for today. * (DICTATED BY CONNIE FOWLER NP) HOSPITAL COURSE: In short, this is a very pleasant 78-year-old male patient who presented to the emergency department with complaints of some facial numbness and tingling and also some transient dizziness. The patient stated that his symptoms resolved by the time he came to the emergency department; however, he was concerned because he does have history of coronary artery disease, MD, hyperlipidemia, cardiomyopathy, and has a pacemaker. He was very concerned that he was having another cardiac event. He also complained of some subjective headache, but denied any fevers or further complaints. He was evaluated in the ED. A Code Baez was called. He was seen by Dr. Gamaliel Ramires of Neurology. The patient was unable to have an MRI because of his pacemaker. He did have a CT of the head, which was negative for any acute process and did not show signs of large vessel occlusion. An echocardiogram was performed concerning for a PFO or some sort of atrial fibrillation. The echo did show some additional cardiomyopathy, which is his baseline. He did have a slight drop off in ejection fraction; however, his pacemaker interrogation showed no arrhythmias. The patient has already optimized on a statin and was taking low dose baby aspirin prior to this current event. As such, he was placed on dual- antiplatelet therapy with baby aspirin and Plavix, which he will continue to take for the next month. He was seen in followup by Dr. Ramires today. We did have a conversation with Dr. Serrano who reported no acute cardiac issues that needed to be addressed. Dr. Ramires was in agreement with the patient being discharged today with outpatient followup with Dr. Fer James. DISCHARGE DIAGNOSES: 1. 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 2. History of coronary artery disease and myocardial infarction, currently stable. 3. History of hyperlipidemia, stable. 4. Cardiomyopathy with additional decrease in ejection fraction, but currently stable. 5. History of arthritis. 6. History of kidney stones. 7. History of hypertension, currently stable. 8. History of alcohol use, 2 to 3 drinks per day. Does not appear to be acutely detoxing. DISCHARGE MEDICATIONS: Include: 1. Losartan 50 mg p.o. daily. 2. Aspirin 81 mg daily. 3. Crestor 10 mg daily. 4. Metoprolol tartrate 25 mg p.o. b.i.d. 5. Thiamine 100 mg p.o. daily. 6. Multivitamin 1 tablet p.o. daily. 7. Folic acid 1 mg p.o. daily. 8. Plavix 75 mg daily. Please note the Plavix is new, as is the thiamine supplementation. REVIEW OF SYSTEMS: A 10-point review of systems is negative except as noted in the hospital course above. PHYSICAL EXAMINATION: The patient is alert, well-appearing, no acute distress. Vital Signs: Blood pressure 115/60, heart rate 57, respiratory rate 20, O2 saturation 96% on room air with a temperature 98.2 . HEENT: The patient is atraumatic and normocephalic. PERRLA with nonicteric sclerae. Neck: Supple, nontender. No JVD noted. No carotid bruit auscultated. Cardiovascular: S1, S2 are present. Rhythm is paced. Rate and rhythm are regular. Lungs: Clear bilaterally to auscultation with no wheezing, rhonchi, or rales. Abdomen: Soft , nontender, nondistended. Positive bowel sounds in all 4 quadrants. : Deferred. Musculoskeletal: There is no clubbing, no cyanosis, and no edema. He has +2 distal pulses palpable. Steady gait. Gross motor and sensation are intact. Neurologic: No acute or new focalities noted. Neuro checks have been negative. Psychiatric: He is cooperative and appropriate. LABORATORY DATA: WBC is 7.40, RBC is 4.78, hemoglobin is 15.4, hematocrit 45, platelets 169. Sodium 138, potassium 4.2, chloride 106, CO2 25, BUN 15, creatinine 1.08, GFR 66.3, glucose 113, A1c 5.7, lactic acid 1.1, calcium 9.2. AST 27, ALT 30, alk phos 57. Troponin is negative at 0.01. Total protein 7.3, albumin of 4.1. Triglycerides 139, cholesterol 138, LDL 63, and HDL 47.0. TSH is 4.52. Urinalysis shows no acute infectious process. INR is 0.98. IMAGING: CTA shows clear vasculature with no acute changes. CT of the head with no acute pathology noted. Echocardiogram dated 10/11/[address] Kentrell Serrano shows global hypokinesis of the left ventricle with minor regional variation, moderate to severely decreased left ventricular systolic function, estimated EF is 30% to 35%, right ventricular global systolic function is low normal. A patent foramen ovale is not demonstrated with color Doppler or agitated contrast. There is no evidence of aortic stenosis. There is trace mitral regurg. There is no evidence of tricuspid valve regurg. Unable to estimate the right ventricular systolic pressure and there is no significant pericardial effusion. DISPOSITION: The patient will be discharged to home. He is in stable condition. ACTIVITY: As tolerated. DIET: Heart-healthy as tolerated. FOLLOWUPS: The patient was instructed to follow up Dr. Melendrez, his primary care provider, in the next 4 to [address] Ananda James in the next 2 weeks. As directed by Dr. Ramires today, the patient should take aspirin and Plavix up until 11/10/18 and then stop aspirin and continue only with his Plavix. This will also be further confirmed after he sees Dr. Ananda James of Neurology in the next couple of weeks. The patient was discharged in stable condition. All questions were answered. The patient stated his understanding of his discharge medications, followups, and discharge plan. TIME SPENT: In excess of 35 minutes discussing his discharge plan of care with the patient interfacing with other providers during this patient's admission. CONNIE FOWLER NP [id number]/[facility] #: [id number] JOVI
== END 2018-10-12 13:30 | disposition home or self-care (01) ==
LOC: ED 11:34 → MEDTELE 15:31
PROVIDERS: ADMIT Internal Medicine; ATTEND Internal Medicine
DX: I63.511 Cerebral infarction due to unspecified occlusion or stenosis of right middle cerebral artery (principal); I25.10 Atherosclerotic heart disease of native coronary artery without angina pectoris; I25.2 Old myocardial infarction; E78.5 Hyperlipidemia, unspecified; I42.9 Cardiomyopathy, unspecified; Z87.442 Personal history of urinary calculi; Z87.39 Personal history of other diseases of the musculoskeletal system and connective tissue; I10 Essential (primary) hypertension; F10.10 Alcohol abuse, uncomplicated; Z79.82 Long term (current) use of aspirin; R51 Headache; R42 Dizziness and giddiness; Z95.5 Presence of coronary angioplasty implant and graft
CPT/HCPCS: 36415; 70496; 70498; 80048; 80053; 80061; 81003; 83036; 83605; 84443; 84484; 85025; 85610; 85730; 93005; 93306; 96374; 96376; 99284; A9270-GY; G0378; J1644; J2405; Q9967

== ENCOUNTER 2019-11-30 11:56 | Day surgery (SDC) | payer MEDICARE, BC ==
[~2019-11-30 11:56] MED LIST: Buffered Lidocaine 1% SYRIN 1 ml INTRADERM ONE
[2019-11-30] MEDS ORDERED: fentaNYL 100 mcg/2 ml 50 MCG/ML VIAL ONE (13:55)
[2019-11-30] MEDS ORDERED: Midazolam 2 mg/2 ml VIAL 1 mg/ml 2 ml VIAL (2 mg) ONE (13:55)
[2019-11-30 14:52] VITALS: BP 151/65
[2019-11-30] MEDS ORDERED: Phenylephrine 2.5% OPHTH SOL 2 ml BTL ONE (15:01)
[2019-11-30] MEDS ORDERED: Cyclopentolate 1% OPTH.SOL 2 ML BTL ONE (15:01)
[2019-11-30] MEDS ORDERED: Proparacaine 0.5% OPHTH.SOL 15 ML BTL ONE (15:01)
[2019-11-30] MEDS ORDERED: Lidocaine 1% MPF 5 ML VIAL ONE (15:01)
[2019-11-30] MEDS ORDERED: Povidone Iodine 5% OPTH 30 ML BTL ONE (15:01)
[2019-11-30] MEDS ORDERED: Neomycin/Polymy/Dex OPTH.SUSP MAXITROL 0.1% 5 ML ONE (15:01)
[2019-11-30] MEDS ORDERED: Ketorolac 0.5% OPHTH (NF) 0.5 % 5 ML BTL ONE (15:01)
[2019-11-30] MEDS ORDERED: Lidocaine 2% w/ EPI 1:200,000 MPF 20 ML SDV VIAL ONE (15:01)
== END 2019-11-30 14:04 | disposition home or self-care (01) ==
LOC: OREAST 11:56
PROVIDERS: ATTEND Specialist
DX: H25.811 Combined forms of age-related cataract, right eye (principal); I42.9 Cardiomyopathy, unspecified; I25.10 Atherosclerotic heart disease of native coronary artery without angina pectoris; I25.2 Old myocardial infarction; Z95.810 Presence of automatic (implantable) cardiac defibrillator; Z95.5 Presence of coronary angioplasty implant and graft; Z85.828 Personal history of other malignant neoplasm of skin

== ENCOUNTER 2020-07-02 09:47 | Inpatient (IN) ==
[2020-07-02 11:17] LABS: BUN/Creatinine Ratio 21.2 (8-20); Calcium 9.1 mg/dL (8.6-10.3); EGFR African American 75.7 (>60); EGFR Non-African American 62.6 (>60); Magnesium 2.1 mg/dL (1.9-2.7)
[2020-07-02] MEDS: CMC:Rosuvastatin 10 mg TAB (NF) PO SCH (22:53)
[2020-07-03 06:46] LABS: Calcium 8.9 mg/dL (8.6-10.3); EGFR African American 87.2 (>60); EGFR Non-African American 72.1 (>60); Potassium 4.1 mmol/L (3.5-5.0)
[2020-07-03] MEDS: CMC:Rosuvastatin 10 mg TAB (NF) PO SCH (21:11)
[2020-07-04 09:23] LABS: BUN/Creatinine Ratio 21.2 (8-20); Calcium 9.4 mg/dL (8.6-10.3); EGFR African American 83.4 (>60); EGFR Non-African American 68.9 (>60); Potassium 4.2 mmol/L (3.5-5.0)
[2020-07-04 11:19] VITALS: BP 144/65
== END 2020-07-04 15:40 | disposition home or self-care (01) | DRG 309 ==
LOC: MEDTELE 09:47
PROVIDERS: ADMIT Nurse Practitioner Family; ATTEND Specialist

== ENCOUNTER 2024-09-09 11:16 | Inpatient (IN) ==
[2024-09-09 11:48] LABS: ABS Eosinophils 0.1 10^3/uL (0.0-0.5); ABS Lymphocytes 1.1 10^3/uL (1.0-4.8); ABS Monocytes 0.6 10^3/uL (0.0-1.1); ABS Neutrophils 12.3 10^3/uL (1.5-7.6); ABS Nucleated RBC 0.01 10^3/ul; Eosinophil % 0.4 %; Hematocrit 39.4 % (38-53); Hemoglobin 13.2 g/dL (13.2-16.3); Lymphocyte % 7.6 %; Mean Corpuscular Hemoglobin 32.6 pg (27-33); Mean Corpuscular Hgb Conc 33.5 g/dL (31-36); Mean Corpuscular Volume 97.3 fL (80-97); Mean Platelet Volume 7.9 fL (7.5-11.2); Nucleated Red Blood Cells % 0.1 %/100WBC (0.0-0.8); Platelet Count 250 10^3/uL (150-450); Red Blood Count 4.05 10^6/uL (4.06-5.63); Red Cell Distribution Width 13.4 % (12-17)
[2024-09-09 12:26] LABS: Albumin 3.5 g/dL (3.2-5.2); Calcium 8.2 mg/dL (8.6-10.3); Creatinine, Serum 1.45 mg/dL (0.67-1.17); Globulin 3.4 g/dL (2-4); Total Bilirubin 1.2 mg/dL (0.2-1.0); Total Protein 6.9 g/dL (6.4-8.9); eGFR CKD-EPI 47.8 (>60)
[2024-09-09 13:03] LABS: INR 1.82 (0.85-1.14)
[2024-09-09 13:20] LABS: High Sensitivity Troponin 1 Hr 13 pg/mL (<20)
[2024-09-09] MEDS: Iodixanol 320 (CONTRAST) 100 ML SDV IV ONE (14:05)
[2024-09-09] MEDS ORDERED: Ondansetron 4 mg VIAL 2 MG/ML 2 ml VIAL IV PRN (16:26)
[2024-09-09 16:37] LABS: Magnesium 2.1 mg/dL (1.9-2.7)
[2024-09-09] MEDS: Dexamethasone IV 4 MG/ML VIAL 1 ml VIAL IV SLOW PU SCH (17:32)
[2024-09-09] MEDS: Remdesivir 100 mg Vial 200 MG in NS 0.9% 250 ml 210 ML IV ONE (17:36)
[2024-09-09] MEDS: Lactated Ringers 1000 ml BAG 1,000 ML IV SCH (21:12)
[2024-09-10 06:51] LABS: ABS Lymphocytes 0.9 10^3/uL (1.0-4.8); ABS Monocytes 0.6 10^3/uL (0.0-1.1); ABS Neutrophils 16.3 10^3/uL (1.5-7.6); Hematocrit 38.9 % (38-53); Hemoglobin 13.2 g/dL (13.2-16.3); Lymphocyte % 5.3 %; Mean Platelet Volume 7.9 fL (7.5-11.2); Platelet Count 303 10^3/uL (150-450); Red Cell Distribution Width 13.5 % (12-17); White Blood Count 17.9 10^3/uL (3.6-10.2)
[2024-09-10 07:00] LABS: INR 1.3 (0.85-1.14)
[2024-09-10 07:30] LABS: Albumin/Globulin Ratio 0.9 (1-3); Creatinine, Serum 1.22 mg/dL (0.67-1.17); Globulin 3.3 g/dL (2-4); Magnesium 2.3 mg/dL (1.9-2.7); Potassium 4.2 mmol/L (3.5-5.0); Total Bilirubin 0.6 mg/dL (0.2-1.0); Total Protein 6.3 g/dL (6.4-8.9); eGFR CKD-EPI 58.8 (>60)
[2024-09-10] MEDS: Remdesivir 100 mg Vial 100 MG in NS 0.9% 250 ml 230 ML IV SCH (08:08)
[2024-09-10] MEDS: Psyllium PAK PO SCH (08:24)
[2024-09-10] MEDS ORDERED: PSYLLIUM HUSK PO SCH (09:00)
[2024-09-10] MEDS: Acetylcysteine 600mgCAP(RENAL) PO SCH (09:59)
[2024-09-10] MEDS: SELENIUM 200 MCG PO SCH (10:00)
[2024-09-10 14:00] LABS: Urine Appearance Clear; Urine Bacteria Absent /HPF (Absent); Urine Bilirubin Negative (Negative); Urine Blood Trace (Negative); Urine Color Yellow; Urine Glucose 4+ (>=1000 mg/dL) (Negative); Urine Granular Casts Present /LPF (Absent); Urine Ketones Trace (Negative); Urine Nitrite Negative (Negative); Urine Protein 1+ (>=30 mg/dL) (Negative); Urine Red Blood Cell 1+(3-5/hpf) /HPF (0-Trace); Urine Squamous Epithelial Cell Present /HPF (Absent); Urine Urobilinogen Negative (Negative); Urine White Blood Cell Trace(0-5/hpf) /HPF (0-Trace); Urine pH 5.5 (5.0-8.0)
[2024-09-10 14:23] LABS: Urine Osmo 579 mOsm/kg (150-1150)
[2024-09-11 04:25] LABS: Hematocrit 40.9 % (38-53); Hemoglobin 13.8 g/dL (13.2-16.3); Mean Corpuscular Hemoglobin 32.5 pg (27-33); Mean Corpuscular Hgb Conc 33.9 g/dL (31-36); Mean Corpuscular Volume 96.1 fL (80-97); Mean Platelet Volume 7.7 fL (7.5-11.2); Platelet Count 355 10^3/uL (150-450); Red Blood Count 4.25 10^6/uL (4.06-5.63); Red Cell Distribution Width 13.8 % (12-17); White Blood Count 23.6 10^3/uL (3.6-10.2)
[2024-09-11 04:33] LABS: INR 1.54 (0.85-1.14)
[2024-09-11 04:46] LABS: ABS Lymphocytes 1.1 10^3/uL (1.0-4.8); ABS Monocytes 1.1 10^3/uL (0.0-1.1); ABS Neutrophils 21.4 10^3/uL (1.5-7.6); ABS Nucleated RBC 0.01 10^3/ul; Lymphocyte % 4.5 %
[2024-09-11 05:08] LABS: Albumin/Globulin Ratio 0.9 (1-3); Calcium 8.4 mg/dL (8.6-10.3); Creatinine, Serum 1.08 mg/dL (0.67-1.17); Globulin 3.4 g/dL (2-4); Potassium 4.1 mmol/L (3.5-5.0); Total Bilirubin 0.5 mg/dL (0.2-1.0); Total Protein 6.4 g/dL (6.4-8.9); eGFR CKD-EPI 68.1 (>60)
[2024-09-12 04:49] LABS: Hematocrit 40.3 % (38-53); Hemoglobin 13.5 g/dL (13.2-16.3); Mean Corpuscular Hemoglobin 32.5 pg (27-33); Mean Corpuscular Hgb Conc 33.5 g/dL (31-36); Mean Platelet Volume 7.3 fL (7.5-11.2); Platelet Count 301 10^3/uL (150-450); Red Blood Count 4.15 10^6/uL (4.06-5.63); Red Cell Distribution Width 13.9 % (12-17); White Blood Count 22.1 10^3/uL (3.6-10.2)
[2024-09-12 04:55] LABS: INR 1.38 (0.85-1.14)
[2024-09-12 05:06] LABS: Albumin 2.9 g/dL (3.2-5.2); Albumin/Globulin Ratio 0.8 (1-3); Calcium 8.3 mg/dL (8.6-10.3); Creatinine, Serum 1.05 mg/dL (0.67-1.17); Globulin 3.5 g/dL (2-4); Potassium 4.5 mmol/L (3.5-5.0); Total Bilirubin 0.5 mg/dL (0.2-1.0); Total Protein 6.4 g/dL (6.4-8.9); eGFR CKD-EPI 70.4 (>60)
[2024-09-12 05:14] LABS: ABS Lymphocytes 0.8 10^3/uL (1.0-4.8); ABS Monocytes 1.2 10^3/uL (0.0-1.1); ABS Neutrophils 20.1 10^3/uL (1.5-7.6); ABS Nucleated RBC 0.01 10^3/ul; Lymphocyte % 3.5 %
[2024-09-12 09:35] LABS: TSH Ultra Thyroid Stim Horm 1.53 mcIU/mL (0.34-5.60)
[2024-09-12] MEDS: OLANZapine 5 mg TAB *ODT PO ONE (21:55)
[2024-09-13] MEDS: Sodium Chloride(INHALANT)0.9% 5 ML NEB.SOLN INH ONE (06:20)
[2024-09-13 06:48] LABS: ABS Lymphocytes 0.9 10^3/uL (1.0-4.8); ABS Monocytes 1.3 10^3/uL (0.0-1.1); Hematocrit 41.2 % (38-53); Lymphocyte % 4.6 %; Mean Corpuscular Hemoglobin 33.1 pg (27-33); Mean Corpuscular Volume 97.4 fL (80-97); Mean Platelet Volume 7.3 fL (7.5-11.2); Platelet Count 266 10^3/uL (150-450); Red Blood Count 4.23 10^6/uL (4.06-5.63); Red Cell Distribution Width 13.9 % (12-17); White Blood Count 19.2 10^3/uL (3.6-10.2)
[2024-09-13 06:55] LABS: Venous Bicarbonate HCO3 20.8 mmol/L (24-28)
[2024-09-13 07:13] LABS: INR 1.57 (0.85-1.14)
[2024-09-13 07:22] LABS: Albumin/Globulin Ratio 0.9 (1-3); Calcium 8.4 mg/dL (8.6-10.3); Creatinine, Serum 1.03 mg/dL (0.67-1.17); Globulin 3.5 g/dL (2-4); Magnesium 2.2 mg/dL (1.9-2.7); Potassium 4.2 mmol/L (3.5-5.0); Total Bilirubin 0.6 mg/dL (0.2-1.0); Total Protein 6.5 g/dL (6.4-8.9); eGFR CKD-EPI 72.1 (>60)
[2024-09-13] MEDS ORDERED: Saliva Substitute (NF) 1 SPRAY BTL MT PRN (07:56)
[2024-09-13] MEDS: Furosemide 40 mg/4 ml IV VIAL IV SLOW PU ONE (10:16)
[2024-09-13] MEDS: Albumin Human 25% 50 GM/200 ML BTL IV ONE (13:49)
[2024-09-13 17:34] LABS: Anion Gap 10 mmol/L (2-16); Blood Urea Nitrogen 40 mg/dL (6-24); CO2 Carbon Dioxide 20 mmol/L (22-32); Calcium 8.8 mg/dL (8.6-10.3); Chloride 104 mmol/L (101-111); Creatinine, Serum 1.17 mg/dL (0.67-1.17); Glucose 142 mg/dL (70-100); Sodium 134 mmol/L (135-145); eGFR CKD-EPI 61.9 (>60)
[2024-09-14] MEDS: Lactated Ringers 1000 ml BAG 500 ML IV ONE ×2 (01:17→02:20)
[2024-09-14] MEDS ORDERED: Albumin Human 5% 12.5 GM/250 ML BTL IV ONE (03:19)
[2024-09-14 03:57] LABS: INR 1.65 (0.85-1.14)
[2024-09-14 04:15] LABS: ABS Lymphocytes 0.8 10^3/uL (1.0-4.8); ABS Neutrophils 18.4 10^3/uL (1.5-7.6); ABS Nucleated RBC 0.02 10^3/ul; Hematocrit 36.6 % (38-53); Hemoglobin 12.4 g/dL (13.2-16.3); Lymphocyte % 3.9 %; Mean Corpuscular Hgb Conc 33.9 g/dL (31-36); Mean Corpuscular Volume 97.1 fL (80-97); Mean Platelet Volume 7.8 fL (7.5-11.2); Nucleated Red Blood Cells % 0.1 %/100WBC (0.0-0.8); Platelet Count 199 10^3/uL (150-450); Red Blood Count 3.77 10^6/uL (4.06-5.63); Red Cell Distribution Width 13.8 % (12-17); White Blood Count 20.2 10^3/uL (3.6-10.2)
[2024-09-14] MEDS: Albumin Human 5% 12.5 GM/250 ML BTL IV ONE (04:19)
[2024-09-14 04:34] LABS: ALT 24 U/L (7-52); Albumin 3.2 g/dL (3.2-5.2); Albumin/Globulin Ratio 1.1 (1-3); Alkaline Phosphatase 58 U/L (35-149); Anion Gap 6 mmol/L (2-16); Blood Urea Nitrogen 42 mg/dL (6-24); CO2 Carbon Dioxide 22 mmol/L (22-32); Calcium 8.3 mg/dL (8.6-10.3); Chloride 106 mmol/L (101-111); Creatinine, Serum 1.04 mg/dL (0.67-1.17); Globulin 2.8 g/dL (2-4); Glucose 159 mg/dL (70-100); Sodium 134 mmol/L (135-145); Total Bilirubin 0.7 mg/dL (0.2-1.0); eGFR CKD-EPI 71.2 (>60)
[2024-09-14] MEDS: ALBUMIN HUMAN 25% IV SCH (08:28)
[2024-09-14 21:58] LABS: Calcium 9.3 mg/dL (8.6-10.3); Creatinine, Serum 1.07 mg/dL (0.67-1.17); Magnesium 2.2 mg/dL (1.9-2.7); Potassium 3.8 mmol/L (3.5-5.0); eGFR CKD-EPI 68.9 (>60)
[2024-09-15] MEDS ORDERED: Albuterol/Ipratropium NEB.SOL (2.5/0.5 MG) 3 ML NEB.SOLN INH PRN (03:48)
[2024-09-15 05:49] LABS: Hematocrit 38.5 % (38-53); Mean Corpuscular Hemoglobin 32.5 pg (27-33); Mean Corpuscular Hgb Conc 33.6 g/dL (31-36); Mean Corpuscular Volume 96.6 fL (80-97); Mean Platelet Volume 7.3 fL (7.5-11.2); Platelet Count 194 10^3/uL (150-450); Red Blood Count 3.99 10^6/uL (4.06-5.63); Red Cell Distribution Width 13.8 % (12-17); White Blood Count 25.3 10^3/uL (3.6-10.2)
[2024-09-15 06:03] LABS: ABS Lymphocytes 0.8 10^3/uL (1.0-4.8); ABS Monocytes 0.9 10^3/uL (0.0-1.1); ABS Neutrophils 23.6 10^3/uL (1.5-7.6); ABS Nucleated RBC 0.01 10^3/ul
[2024-09-15 16:54] LABS: ALT 20 U/L (7-52); Albumin 3.6 g/dL (3.2-5.2); Albumin/Globulin Ratio 1.2 (1-3); Alkaline Phosphatase 72 U/L (35-149); Anion Gap 9 mmol/L (2-16); Blood Urea Nitrogen 41 mg/dL (6-24); CO2 Carbon Dioxide 21 mmol/L (22-32); Chloride 110 mmol/L (101-111); Creatinine, Serum 1.02 mg/dL (0.67-1.17); Glucose 126 mg/dL (70-100); Sodium 140 mmol/L (135-145); Total Bilirubin 1.1 mg/dL (0.2-1.0); Total Protein 6.6 g/dL (6.4-8.9); eGFR CKD-EPI 72.9 (>60)
[2024-09-16 05:19] LABS: Hematocrit 40.1 % (38-53); Hemoglobin 13.5 g/dL (13.2-16.3); Mean Corpuscular Hemoglobin 32.6 pg (27-33); Mean Corpuscular Hgb Conc 33.6 g/dL (31-36); Mean Corpuscular Volume 96.9 fL (80-97); Mean Platelet Volume 7.3 fL (7.5-11.2); Platelet Count 180 10^3/uL (150-450); Red Blood Count 4.14 10^6/uL (4.06-5.63); White Blood Count 25.2 10^3/uL (3.6-10.2)
[2024-09-16 05:41] LABS: Calcium 8.6 mg/dL (8.6-10.3); Creatinine, Serum 1.02 mg/dL (0.67-1.17); Magnesium 2.2 mg/dL (1.9-2.7); Potassium 4.4 mmol/L (3.5-5.0); eGFR CKD-EPI 72.9 (>60)
[2024-09-16 07:12] LABS: ABS Basophils 0.1 10^3/uL (0.0-0.1); ABS Lymphocytes 0.7 10^3/uL (1.0-4.8); ABS Monocytes 0.6 10^3/uL (0.0-1.1); ABS Neutrophils 23.9 10^3/uL (1.5-7.6); ABS Nucleated RBC 0.01 10^3/ul; Lymphocyte % 2.8 %
[2024-09-16] MEDS: Albumin Human 5% 12.5 GM/250 ML BTL IV ONE (08:31)
[2024-09-16 09:43] LABS: PCO2 Arterial 25 mmHg (35-45); PO2 Arterial 68 mmHg (80-100)
[2024-09-16] MEDS: NS 0.9% 250 ml 250 ML IV ONE (22:57)
[2024-09-17 04:07] LABS: Calcium 8.8 mg/dL (8.6-10.3); Creatinine, Serum 1.12 mg/dL (0.67-1.17); Magnesium 2.2 mg/dL (1.9-2.7); Potassium 4.3 mmol/L (3.5-5.0); eGFR CKD-EPI 65.2 (>60)
[2024-09-17 04:15] LABS: Hematocrit 40.4 % (38-53); Hemoglobin 13.6 g/dL (13.2-16.3); Mean Corpuscular Hemoglobin 32.6 pg (27-33); Mean Corpuscular Hgb Conc 33.7 g/dL (31-36); Mean Corpuscular Volume 96.7 fL (80-97); Mean Platelet Volume 7.8 fL (7.5-11.2); Platelet Count 175 10^3/uL (150-450); Red Blood Count 4.18 10^6/uL (4.06-5.63); White Blood Count 23.3 10^3/uL (3.6-10.2)
[2024-09-17 04:18] LABS: ABS Lymphocytes 0.8 10^3/uL (1.0-4.8); ABS Monocytes 0.6 10^3/uL (0.0-1.1); ABS Neutrophils 21.9 10^3/uL (1.5-7.6); ABS Nucleated RBC 0.01 10^3/ul; Lymphocyte % 3.3 %
[2024-09-18 00:45] LABS: Magnesium 2.2 mg/dL (1.9-2.7); Potassium 4.3 mmol/L (3.5-5.0)
[2024-09-18 04:32] LABS: Hematocrit 43.7 % (38-53); Hemoglobin 14.4 g/dL (13.2-16.3); Mean Corpuscular Hemoglobin 32.1 pg (27-33); Mean Corpuscular Hgb Conc 32.8 g/dL (31-36); Mean Corpuscular Volume 97.8 fL (80-97); Platelet Count 181 10^3/uL (150-450); Red Blood Count 4.47 10^6/uL (4.06-5.63); Red Cell Distribution Width 14.1 % (12-17); White Blood Count 29.7 10^3/uL (3.6-10.2)
[2024-09-18 04:36] LABS: ABS Basophils 0.1 10^3/uL (0.0-0.1); ABS Lymphocytes 1.1 10^3/uL (1.0-4.8); ABS Neutrophils 27.6 10^3/uL (1.5-7.6); Lymphocyte % 3.6 %
[2024-09-18 05:03] LABS: Creatinine, Serum 1.03 mg/dL (0.67-1.17); Magnesium 2.4 mg/dL (1.9-2.7); Potassium 4.4 mmol/L (3.5-5.0); eGFR CKD-EPI 72.1 (>60)
[2024-09-18] MEDS ORDERED: Phenol 1.4% Throat Spray BTL MT PRN (18:33)
[2024-09-18] MEDS: Lactated Ringers 1000 ml BAG 1,000 ML IV ONE (21:16)
[2024-09-19 02:08] LABS: Magnesium 2.3 mg/dL (1.9-2.7)
[2024-09-19 04:41] LABS: Hematocrit 39.3 % (38-53); Hemoglobin 12.9 g/dL (13.2-16.3); Mean Corpuscular Hemoglobin 31.7 pg (27-33); Mean Corpuscular Hgb Conc 32.8 g/dL (31-36); Mean Corpuscular Volume 96.7 fL (80-97); Mean Platelet Volume 8.2 fL (7.5-11.2); Platelet Count 149 10^3/uL (150-450); Red Blood Count 4.07 10^6/uL (4.06-5.63); Red Cell Distribution Width 13.9 % (12-17); White Blood Count 26.4 10^3/uL (3.6-10.2)
[2024-09-19 05:22] LABS: Calcium 8.6 mg/dL (8.6-10.3); Creatinine, Serum 1.03 mg/dL (0.67-1.17); Magnesium 2.3 mg/dL (1.9-2.7); Potassium 4.7 mmol/L (3.5-5.0); eGFR CKD-EPI 72.1 (>60)
[2024-09-19 06:25] LABS: ABS Lymphocytes 0.5 10^3/uL (1.0-4.8); ABS Monocytes 0.5 10^3/uL (0.0-1.1); ABS Neutrophils 25.3 10^3/uL (1.5-7.6)
[2024-09-19] MEDS ORDERED: Norepinephrine 4 MG/250mL D5W 4,000 MCG/250 ML BAG IV SCH (19:00)
[2024-09-20 05:06] LABS: Hematocrit 40.3 % (38-53); Hemoglobin 13.4 g/dL (13.2-16.3); Mean Corpuscular Hemoglobin 32.2 pg (27-33); Mean Corpuscular Hgb Conc 33.3 g/dL (31-36); Mean Corpuscular Volume 96.9 fL (80-97); Mean Platelet Volume 8.3 fL (7.5-11.2); Platelet Count 132 10^3/uL (150-450); Red Blood Count 4.16 10^6/uL (4.06-5.63); Red Cell Distribution Width 13.7 % (12-17)
[2024-09-20 06:09] LABS: Calcium 8.6 mg/dL (8.6-10.3); Creatinine, Serum 0.97 mg/dL (0.67-1.17); Magnesium 2.3 mg/dL (1.9-2.7); Potassium 4.4 mmol/L (3.5-5.0); eGFR CKD-EPI 77.5 (>60)
[2024-09-20 08:06] LABS: C Reactive Protein 52.44 mg/L (<8.01)
[2024-09-20] MEDS ORDERED: Tocilizumab 200 MG/10 ML 10 ml VIAL IVPB ONE (08:27)
[2024-09-20] MEDS ORDERED: NS 0.9% IVPB ONE (09:00)
[2024-09-20] MEDS ORDERED: TOCILIZUMAB IVPB ONE (09:00)
[2024-09-20] MEDS ORDERED: Morphine ORAL CONCENTRATE 5 MG/0.25 ML ORAL.SYRIN PO PRN (09:19)
[2024-09-20 10:59] VITALS: BP 121/80
[2024-09-20] MEDS ORDERED: Morphine 2 MG/ML SYRINGE IV PRN ×2 (11:07→11:30)
[2024-09-20] MEDS ORDERED: Lorazepam PYXIS KEY PRN (11:18)
[2024-09-20] MEDS: LORazepam 2 mg VIAL 1 ml IV PUSH PRN (11:25)
[2024-09-20] MEDS: LORazepam 2 mg VIAL 1 ml ONE (11:26)
[2024-09-20] MEDS: HYDROmorphone 1 MG/1 ML SYRINGE IV SLOW PU ONE (11:50)
[2024-09-20] MEDS: HYDROmorphone 1 MG/1 ML SYRINGE IV SLOW PU PRN (12:12)
== END 2024-09-20 13:36 | disposition expired | DRG 177 ==
LOC: ED 11:16 → EDHOLD 16:01 → ICU 20:07
PROVIDERS: ADMIT Internal Medicine Critical Care Medicine; ATTEND Internal Medicine Critical Care Medicine